=== PATIENT | female | born 1965 | race African-American/Black ===

== ENCOUNTER 2016-12-31 18:09 | Emergency (ER) | payer BC ==
[~2016-12-31] VITALS: Ht 165.1 cm; Wt 76.4 kg
[2016-12-31 18:12] VITALS: TEMP 97.9
[2016-12-31 18:48] LABS: PROTHROMBIN TIME 11.1 SECONDS (9.7-12.8)
[2016-12-31 18:51] LABS: PARTIAL THROMBOPLASTIN TIME 30.3 SECONDS (26.0-37.0)
[2016-12-31 18:53] LABS: ADJUSTED CALCIUM 9.6 mg/dL (8.4-10.2); ALANINE AMINOTRANSFERASE 34 U/L (9-52); ALKALINE PHOSPHATASE 83 U/L (50-136); ANION GAP 8 mmol/L (7-16); BILIRUBIN,TOTAL 0.3 mg/dL (0.0-1.0); BLOOD UREA NITROGEN 13 mg/dL (7-17); CALCIUM 9.6 mg/dL (8.4-10.2); CARBON DIOXIDE 27 mmol/L (22-30); CHLORIDE 104 mmol/L (98-107); CREATININE, serum 0.83 mg/dL (0.52-1.25); GLUCOSE 121 mg/dL (74-106); POTASSIUM 3.5 mmol/L (3.4-5.0); SODIUM 139 mmol/L (137-145); TOTAL PROTEIN 7.1 gm/dL (6.4-8.2)
[2016-12-31 18:55] LABS: BASO # 0.1 (0.0-0.2); BASO % 0.5 % (0.0-2.0); EOS # 0.2 (0.0-0.7); EOS % 1.8 % (0-4.0); GRAN # 5.7 (1.4-6.5); LYMPH # 3.2 (1.2-3.4); MEAN CELL VOLUME 83 fl (80.0-100.0); MEAN CORPUSCULAR HGB CONC 31 g/dl (33.0-37.0); MEAN PLATELET VOLUME 10.9 fl (7.4-10.4); MONO # 0.8 (0.1-0.6); MONO % 8.1 % (1.7-9.3); PLATELET COUNT 262 K/mm3 (130-400); RED BLOOD COUNT 4.47 M/mm3 (4.10-5.30)
[2016-12-31 18:56] LABS: HEMATOCRIT 36.9 % (37.0-47.0); HEMOGLOBIN 11.4 g/dl (12.5-16.0); MEAN CORPUSCULAR HEMOGLOBIN 26 pg (27.0-31.0)
[2016-12-31 19:05] LABS: D-DIMER < 200.00 ng/mLDDu (200-230); TROPONIN-I < 0.012 ng/mL (0.000-0.034)
[2016-12-31] MEDS ORDERED: PRINIVIL40 MG PO (19:09)
[2016-12-31] MEDS ORDERED: INDERAL LA 80MG80 MG PO (19:09)
[2016-12-31] MEDS ORDERED: DYAZIDE 25 MG-31 CAP PO (19:11)
[2016-12-31 21:44] VITALS: BP 124/83; PULSE 72
== END 2016-12-31 21:45 | disposition home or self-care (01) ==
LOC: COL.ER 18:09
PROVIDERS: Emergency Medicine
DX: I10 Essential (primary) hypertension (principal); R07.9 Chest pain, unspecified; K21.9 Gastro-esophageal reflux disease without esophagitis